=== PATIENT | female | born 1990 | race Two or more races ===

== ENCOUNTER 2022-06-10 22:50 | Inpatient (IN) | payer OTHER ==
[~2022-06-10] VITALS: Ht 152.4 cm; Wt 3.2 kg
[2022-06-10] MEDS ORDERED: PRENATAL + DHA1 EAC1 (23:15)
== END 2022-06-13 13:06 | disposition home or self-care (01) | DRG 788 ==
LOC: OB/GYN 22:50 → LDR 22:50 → OB/GYN 06-11 09:10
PROVIDERS: ADMIT Obstetrics & Gynecology; ATTEND Obstetrics & Gynecology
PROC: 4A1HXCZ Monitoring of Products of Conception, Cardiac Rate, External Approach (ICD-10-PCS; 2022-06-10)
PROC: 10D00Z1 Extraction of Products of Conception, Low, Open Approach (ICD-10-PCS; principal; 2022-06-11 09:00)
DX: O82 Encounter for cesarean delivery without indication (principal); O76 Abnormality in fetal heart rate and rhythm complicating labor and delivery; Z3A.38 38 weeks gestation of pregnancy; Z37.0 Single live birth; Z20.822 Contact with and (suspected) exposure to COVID-19